=== PATIENT | female | born 1990 | race Caucasian/White ===

== ENCOUNTER 2017-01-01 04:12 | Emergency (ER) | payer MEDICAID, OTHER ==
[~2017-01-01] VITALS: Ht 165.1 cm; Wt 111.2 kg
[~2017-01-01 04:12] MED LIST: PREN-256
[2017-01-01 04:19] VITALS: BP 119/76
--- NOTE | 2017-01-01 05:17 | NUR ---
PT TAKEN TO BED 1
--- NOTE | 2017-01-01 05:28 | NUR ---
26 Y/O F W/C/O R EAR PAIN/ SORETHROAT X YESTERDAY. NO MED HX. PT DENIES N/V/D; SKIN IS PINK/WARM/DRY; AAOX4 WITH EVEN AND STEADY GAIT; LUNGS CLEAR BL; HR EVEN AND REGULAR; PT DENIES ANY FEVER, CP, SOB, OR COUGH AT THIS TIME; PATIENT STATES PAIN OF 10/10 AT THIS TIME; VSS; PATIENT POSITIONED FOR COMFORT; HOB ELEVATED; BEDRAILS UP X2; BED DOWN. ER MD MADE AWARE OF PT STATUS.
--- NOTE | 2017-01-01 05:29 | NUR ---
Dr. Milan evaluating patient at bedside.
[2017-01-01] MEDS ORDERED: IBUPROFEN 800 MG TAB PO ONE (05:35)
[2017-01-01 06:08] VITALS: BP 120/75
--- NOTE | 2017-01-01 06:08 | NUR ---
Patient discharged with v/s stable. Written and verbal after care instructions given and explained. Patient alert, oriented and verbalized understanding of instructions. Ambulatory with steady gait. All questions addressed prior to discharge. ID band removed. Patient advised to follow up with PMD OR RETURN TO ER IF CONDITION WORSENS. Rx of AUGMENTIN, AND IBUPROFEN given. Patient educated on indication of medication including possible reaction and side effects. Opportunity to ask questions provided and answered.
== END 2017-01-01 06:08 | disposition home or self-care (01) ==
LOC: MED 04:12
DX: H66.91 Otitis media, unspecified, right ear (principal)
CPT/HCPCS: 99283

== ENCOUNTER 2019-09-12 13:37 | Emergency (ER) | payer OTHER ==
[~2019-09-12] VITALS: Ht 165.1 cm; Wt 90.7 kg
[2019-09-12 13:50] VITALS: BP 152/84
[2019-09-12 15:06] VITALS: BP 152/84
== END 2019-09-12 15:07 | disposition home or self-care (01) ==
LOC: MED 13:37
DX: R20.2 Paresthesia of skin (principal); Z79.899 Other long term (current) drug therapy
CPT/HCPCS: 81025; 99282

== ENCOUNTER 2019-12-17 09:16 | Emergency (ER) | payer OTHER ==
[~2019-12-17] VITALS: Ht 165.1 cm; Wt 109.8 kg
[2019-12-17 09:19] VITALS: BP 132/88
--- NOTE | 2019-12-17 09:19 | NUR ---
Patient ambulated to bed 11. RN evaluating patient at bedside.
[2019-12-17] MEDS ORDERED: KETOROLAC 60 MG/2 ML VIAL IM ONE (09:25)
--- NOTE | 2019-12-17 09:27 | NUR ---
PATIENT PRESENTS TO ED WITH INTERMITTENT LEFT KNEE PAIN X1 MONTH . PT DENIES ANY INJURY OR TRAUMA. NO DEFORMITY NOTED. DENIES N/V/D; SKIN IS PINK/WARM/DRY; AAOX4 WITH EVEN AND STEADY GAIT; LUNGS CLEAR BL; HR EVEN AND REGULAR; PT DENIES ANY FEVER, CP, SOB, OR COUGH AT THIS TIME; PATIENT STATES PAIN OF 10/10 AT THIS TIME; VSS; PATIENT POSITIONED FOR COMFORT; HOB ELEVATED; BEDRAILS UP X2; BED DOWN. ER MD MADE AWARE OF PT STATUS.
[2019-12-17 10:07] VITALS: BP 132/88
== END 2019-12-17 10:07 | disposition home or self-care (01) ==
LOC: MED 09:16
DX: M25.562 Pain in left knee (principal); Z79.899 Other long term (current) drug therapy; Z98.890 Other specified postprocedural states
CPT/HCPCS: 96372; 99283; J1885

== ENCOUNTER 2021-11-07 09:28 | Emergency (ER) | payer OTHER ==
[~2021-11-07] VITALS: Ht 165.1 cm; Wt 97.5 kg
[2021-11-07 09:30] VITALS: BP 136/111
--- NOTE | 2021-11-07 09:39 | NUR ---
Florencio bar in ED - 11/07/21 at 0940 by [email or web address] PT AMB TO BED 11.
--- NOTE | 2021-11-07 09:40 | NUR ---
PT AMB TO BED
--- NOTE | 2021-11-07 10:06 | NUR ---
VICKI Luong evaluating patient at bedside.
[2021-11-07] MEDS ORDERED: IBUP-2213 PO (10:22)
[2021-11-07] MEDS ORDERED: NITR100C7 PO (10:22)
--- NOTE | 2021-11-07 10:27 | NUR ---
Patient discharged with v/s stable. Written and verbal after care instructions given. Patient alert, oriented and verbalized understanding of instructions. Ambulatory with steady gait. All questions addressed prior to discharge. ID band removed. Patient advised to follow up with PMD. Rx of Macrobid and Ibuprofen given. Opportunity to ask questions provided and answered.
--- NOTE | 2021-11-07 10:31 | NUR ---
The patient's care was reviewed and supervised by Haley Sheldon, RN, RN.
[2021-11-07 13:15] LABS: APPEARANCE,URINE SL CLOUDY (CLEAR); BILIRUBIN,URINE NEGATIVE (NEGATIVE); BLOOD, URINE NEGATIVE (NEGATIVE); COLOR,URINE YELLOW (YELLOW); LEUKOCYTE ESTERASE ,URINE TRACE (NEGATIVE); NITRITE, URINE NEGATIVE (NEGATIVE); PH,URINE 5.5 (5.0-9.0); UGLUCOSE NEGATIVE (NEGATIVE)
== END 2021-11-07 10:27 | disposition home or self-care (01) ==
LOC: MED 09:28
DX: N39.0 Urinary tract infection, site not specified (principal); M54.50 Low back pain, unspecified
CPT/HCPCS: 81001; 81003; 81025; 87086; 99283